=== PATIENT | female | born 1985 | race Caucasian/White ===

== ENCOUNTER 2019-09-06 12:39 | Emergency (ER) | payer OTHER ==
[~2019-09-06] VITALS: Ht 167.6 cm; Wt 63.6 kg
[2019-09-06] MEDS ORDERED: ACETAMINOPHEN TAB 650MG DOSE (2X325MG) PO ONE (13:15)
--- NOTE | 2019-09-06 13:35 | REP ---
Clinical: Trauma . Comparison: None . Findings: There appears to be area of suspected encephalomalacia and low density in the midline posteriorly beginning at the level of the splenium of the corpus callosum and extending superiorly. 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 No prior examinations are available for comparison and correlation is recommended. The ventricles are symmetric and normal. Lee-white differentiation is otherwise maintained. No extra-axial fluid collection. No acute intracranial hemorrhage or mass/mass effect noted. The calvarium is intact. Small fluid level in the visualized left maxillary sinus is nonspecific. Impression: 1. Posterior midline low density changes as described above extending from the region of the posterior corpus callosum superiorly may represent old infarction and correlation is recommended. 2. No evidence for acute intracranial hemorrhage, mass/mass effect, or trauma/injury. Electronically Signed by Jeremie Camp MD 09/06/2019 01:27 P
--- NOTE | 2019-09-06 13:37 | REP ---
Clinical: Trauma . Technique: AP, lateral, bilateral oblique, and coned-down views. Findings: Alignment and lordosis is maintained. The vertebral bodies including transverse process and spinous processes are intact and normal. There is no evidence for acute fracture / compression injury or subluxation. No evidence for spondylolysis or spondylolisthesis. No significant degenerative change is noted. Impression: Normal lumbosacral spine radiograph series. Electronically Signed by Jeremie Camp MD 09/06/2019 01:29 P
--- NOTE | 2019-09-06 13:37 | REP ---
CT study of the cervical spine without contrast: History: Trauma. Technique: Helical scanning is acquired and overlapping 2 mm high resolution axial images were generated and reviewed at bone and soft tissue window settings. Coronal and sagittal multiplanar re-formations images are generated. CT findings: There is no evidence of cervical spine element fracture. No skull base fracture is seen. Cervical vertebral body heights are preserved. There is some straightening and reversal of the normal cervical lordosis. Alignment is normal. Facet joints are normally aligned bilaterally at each cervical level on multiplanar re-formations images. There is no evidence of intraspinal or paraspinal hematoma. No extra vertebral abnormality is seen. Impression: Negative CT study of the cervical spine without contrast. No fracture seen. Electronically Signed by Giovanni Newman MD 09/06/2019 01:29 P
--- NOTE | 2019-09-06 13:37 | REP ---
Clinical: Trauma. Technique: Single AP view of the pelvis. Findings: No acute fracture dislocation. Skeletal structures, joint spaces, and surrounding soft tissues are normal. Impression: No acute fracture or dislocation. Electronically Signed by Jeremie Camp MD 09/06/2019 01:29 P
[2019-09-06 14:07] VITALS: BP 106/59
--- NOTE | 2019-09-06 16:41 | ED PDOC ---
Post-Departure Follow-Up radiology rpeort faxed to [facility] Karma Hemphill MD Sep 06, 2019 16:41
== END 2019-09-06 14:11 | disposition home or self-care (01) ==
LOC: M ED 12:39
DX: R93.0 Abnormal findings on diagnostic imaging of skull and head, not elsewhere classified (principal); S09.90XA Unspecified injury of head, initial encounter; S30.0XXA Contusion of lower back and pelvis, initial encounter; W00.0XXA Fall on same level due to ice and snow, initial encounter; Y92.89 Other specified places as the place of occurrence of the external cause